=== PATIENT | male | born 1945 | race Caucasian/White ===

== ENCOUNTER → 2018-09-16 06:49 | Outpatient (CLI) | payer OTHER, SELFPAY ==
--- NOTE | 2018-09-16 | DI.ECHO.S_ITS ---
[place] [facility]---------+ [facility] +---------+ : : [address] : [address] : : : : [id number] : : : : Phone: [phone]+ Echocardiogram Report + + :Name: MINAL PENA Study Date: 09/16/2018 Height: 71 in : :[facility] Exam Location: IS Weight: 189 lb : : Gender: Male BSA: 2.1 m2 : :: 1945 Age: 72 yrs BP: 145/65 mmHg: :Reason For Study: DYSPNEA ON EXERTION : : Performed By: Oracio Perez : :Referring: EZEQUIEL HUMPHREYS E : + + Interpretation Summary The left ventricle is normal in size, wall thickness, and systolic function without any focal wall motion abnormalities with the ejection fraction visually estimated to be 60-65%. Diastolic parameters suggest a relaxation abnormality of the left ventricle, consistent with probable normal filling pressures. The right ventricle is normal in size and function. The right ventricular systolic pressure is estimated to be at least 28 mmHg based on an estimated right atrial pressure of 8 mm Hg. There is moderate biatrial enlargement. There is no significant valvular heart disease. The ascending aorta is at the upper limits of normal in size. The patient was in normal sinus rhythm with frequent PVCs during the exam. Procedure: A two-dimensional transthoracic echocardiogram with color flow and Doppler was performed. The study quality was technically good. There is no prior echocardiogram noted for this patient. The patient was in normal sinus rhythm during the exam. The patient had frequent PVCs during the exam. Left Ventricle: The left ventricle is normal in size, wall thickness, and systolic function without any focal wall motion abnormalities. The ejection fraction is estimated to be 60-65%. Diastolic parameters suggest a relaxation abnormality of the left ventricle, consistent with probable normal filling pressures. Right Ventricle: The right ventricle is normal in size and function. Atria: There is moderate biatrial enlargement. The interatrial septum is intact with no evidence for an atrial septal defect. Mitral Valve: The mitral valve is normal in structure and function. There is no mitral regurgitation noted. Aortic Valve: The aortic valve is trileaflet. The aortic valve is slightly calcified. The aortic valve opens well. No aortic regurgitation is present. Tricuspid Valve: The tricuspid valve is normal in structure and function. There is trace tricuspid regurgitation. The right ventricular systolic pressure is estimated to be at least 28 mmHg based on an estimated right atrial pressure of 8 mm Hg. Pulmonic Valve: The pulmonic valve is normal in structure and function. There is trace pulmonic regurgitation. There is no significant valvular heart disease. Great Vessels: The aortic root is normal size. The ascending aorta is at the upper limits of normal in size. The pulmonary artery is normal size. The IVC is dilated (diameter is greater than 2.1 cm) yet it collapses greater than 50% with a sniff. This suggests a right atrial pressure of 8 mm Hg. Pericardium/ Pleura There is no pericardial effusion. There is no pleural effusion. MMode/2D Measurements & Calculations LVIDd: 4.5 cm LVOT diam: 2.3 cm LVIDs: 3.0 cm Ao root diam: 3.6 cm FS: 33.9 % asc Aorta Diam: 3.4 cm EPSS: 0.40 cm Ao Arch Diam (Prox Trans): 2.9 cm IVSd: 0.95 cm LVPWd: 1.1 cm LV garza. diameter/BSA (cm/m^2): 2.2 LV sys. diameter/BSA (cm/m^2): 1.5 LA dimension: 3.6 cm RA long axis: 6.3 cm LA A2 area: 29.0 cm2 RA area: 26.3 cm2 LA A4 area: 25.7 cm2 RA vol: 92.7 ml LA length (vol): 6.4 cm RA : 45.0 ml/m2 LA vol: 98.5 ml IVC diam: 2.4 cm LA vol index: 47.8 ml/m2 Doppler Measurements & Calculations Ao V2 max: 141.4 cm/sec LVOT Max Petros: 114.2 cm/sec Ao V2 mean: 93.3 cm/sec LV V1 max P.2 mmHg Ao max P.0 mmHg LV V1 VTI: 33.6 cm Ao mean P.9 mmHg ROWDY(I,D): 3.9 cm2 Ao V2 VTI: 36.2 cm ROWDY(V,D): 3.4 cm2 sev ratio: 0.93 ROWDY indexed to BSA (cm^2/m^2): 1.9 MV E max petros: 83.9 cm/sec TR max petros: 221.9 cm/sec MV A max petros: 70.5 cm/sec TR max P.7 mmHg MV E/A: 1.2 PA V2 max: 74.9 cm/sec Med Peak E' Petros: 7.6 cm/sec PA V2 mean: 51.4 cm/sec E/E' med: 11.1 PA mean P.2 mmHg Lat Peak E' Petros: 10.0 cm/sec PA pr(Accel): 29.1 mmHg E/E' lat: 8.4 E/e' average: 9.7 MV dec time: 0.14 sec SV(LVOT): 142.3 ml Reading Physician:SERGIO
== END ==
PROVIDERS: PCP Family Medicine; Visit Provider Family Medicine
DX: R06.00 Dyspnea, unspecified (principal); I51.7 Cardiomegaly
CPT/HCPCS: 93306

== ENCOUNTER → 2018-10-27 12:26 | Outpatient (CLI) | payer OTHER, SELFPAY ==
--- NOTE | 2018-10-27 | DI.RAD.S_ITS ---
PROCEDURE: XR CHEST 2V INDICATIONS: DYSPNEA ON EXERTION TECHNIQUE: 2 views of the chest were acquired. COMPARISON: None. FINDINGS: Surgical changes and devices: None. Lungs and pleura: Lungs are clear. No pleural effusions or pneumothorax. Mediastinum: Mediastinal contours are normal. Heart size is normal. Bones and chest wall: No suspicious bony abnormalities. Soft tissues appear unremarkable. IMPRESSION: Normal for age, source of current shortness of breath on exertion symptoms is not seen. Dictated by: Logan Martinez M.D. on 10/27/2018 at 13:32 Approved by: Logan Martinez M.D. on 10/27/2018 at 13:36
== END ==
PROVIDERS: PCP Family Medicine; Visit Provider Family Medicine
DX: R06.09 Other forms of dyspnea (principal)
CPT/HCPCS: 71046

== ENCOUNTER → 2018-12-03 07:45 | Outpatient (CLI) | payer OTHER, SELFPAY ==
--- NOTE | 2018-12-03 08:47 | PM.TREADMILL ---
Cardiac Stress Test Report Referral & Results Date Patient Seen: 12/03/18 Time Patient Seen: 08:30 Requesting provider: [place] Indication: Dyspnea Rest ECG: Occasional PVCs Procedure Note: Today following both written and verbal informed consent the patient was exercised according to a standard [place] protocol until the patient went about 4 minutes. PCVs increased steadily with exercise and began to occur in couplets. The exam was converted to a walking Lexiscan in which he walked on the treadmill at 2 miles per hour with no elevation and was then injected with the [place] scan material. The Cardiolite was then immediately administered. The patient spent an additional 2-3 minutes on the treadmill before being returned to the [facility] in the supine position. Rhythm converted to trigeminy with the addition of Lexiscan material. No ST deviations noted. Impression: Completed [place] protocol. Will await perfusion imaging. Please note: Actual ECG tracings can be found in the PACS system.
--- NOTE | 2018-12-03 08:51 | P.PCN_ITS ---
Cardiac Stress Test Report Referral & Results Date Patient Seen: 12/03/18 Time Patient Seen: 08:30 Requesting provider: [place] Indication: Dyspnea Rest ECG: Occasional PVCs Procedure Note: Today following both written and verbal informed consent the patient was exercised according to a standard [place] protocol until the patient went about 4 minutes. PCVs increased steadily with exercise and began to occur in couplets. The exam was converted to a walking Lexiscan in which he walked on the treadmill at 2 miles per hour with no elevation and was then injected with the [place] scan material. The Cardiolite was then immediately administered. The patient spent an additional 2-3 minutes on the treadmill before being returned to the [facility] in the supine position. Rhythm converted to trigeminy with the addition of Lexiscan material. No ST deviations noted. Impression: Completed [place] protocol. Will await perfusion imaging. Please note: Actual ECG tracings can be found in the PACS system.
--- NOTE | 2018-12-06 20:16 | DI.NM.S_ITS ---
DATE OF SERVICE: 12/03/2018 PROCEDURE: Pharmacological perfusion study. INDICATIONS: Shortness of breath, PVCs. RADIOPHARMACEUTICAL: 22.1 mCi technetium-99m Myoview IV was injected at stress and 22.3 mCi technetium-99m Myoview IV was injected at rest. CARDIAC STRESS: Patient initially attempted exercise stress test. However, developed frequent PVCs; hence, converted to pharmacological perfusion study. Patient received IV Lexiscan as per standard protocol under the supervision of attending staff. He remained hemodynamically stable. Baseline rhythm was sinus with intermittent PVCs including ventricular trigemini. No sustained or nonsustained ventricular tachycardia seen. Blood pressure remains stable. According to the report, patient didn't have any significant symptoms. RAW DATA: There was increased subdiaphragmatic activity. GATED STUDY: Resting stress LV ejection fraction 69%. Stress LV ejection fraction 72%. No obvious wall motion abnormalities. No transient ischemic dilatation. TID ratio is 0.83, which is within normal limits. Resting LV end- diastolic volume is 128 mL. Lung/heart ratio is 0.25, which is within normal limits. MYOCARDIAL PERFUSION SCAN: Stress supine and resting supine images revealed minimally decreased perfusion of apex which got resolved during prone images suggestive of tissue attenuation artifact. No convincing ischemic infarction pattern seen. CONCLUSION: No obvious ischemia infarction. I will call this study a normal myocardial perfusion study. Patient has baseline intermittent premature ventricular contractions (PVCs) including ventricular trigemini. According to the report, during exercise, it has gotten worse. No obvious ventricular tachycardia seen. Left ventricular (LV) systolic function is preserved. Consider EP evaluation for frequent PVCs. Telly Goetz - ANUSHKA/ryan/ doc#: [id number]/job#: [id number] dd: 12/06/2018 17:54:00 dt: 12/06/2018 20:07:00 DICTATING MD/COPIES TO: Maureen Topete MD COPIES MNE: FLORY
== END ==
PROVIDERS: PCP Family Medicine; Visit Provider Family Medicine
DX: R06.02 Shortness of breath (principal); R06.00 Dyspnea, unspecified; I49.3 Ventricular premature depolarization
CPT/HCPCS: 78452; 93016; 93017; 93018; A9502; J2785

== ENCOUNTER → 2022-05-19 09:49 | Outpatient (CLI) | payer OTHER, SELFPAY ==
[2022-05-19 12:18] LABS: COVID19 -Nasal RAPID Negative (Negative)
== END ==
PROVIDERS: PCP Family Medicine; Visit Provider Surgery
DX: Z01.812 Encounter for preprocedural laboratory examination (principal); Z20.822 Contact with and (suspected) exposure to COVID-19
CPT/HCPCS: 87635; C9803

== ENCOUNTER 2022-07-08 07:06 | Day surgery (SDC) | payer OTHER, SELFPAY ==
[2022-07-08] MEDS: LACTATED RINGERS 1,000 ML 200 ML IV (07:22)
[2022-07-08 07:34] VITALS: BP 130/73; PULSE 68; RESP 16; TEMP 36.3; O2SAT 98; BMI 26.4
--- NOTE | 2022-07-08 08:05 | P.HP_ITS ---
History of Present Illness History of Present Illness Date Patient Seen: 07/08/22 Time Patient Seen: 08:05 Chief complaint: SDC Narrative: The patient presents for colorectal screening. Colonoscopy 13 years ago normal.. No personal or family history of colon cancer. On further history denies any recent gastrointestinal symptoms. No nausea, vomiting, abdominal pain, loss of appetite, unexplained weight loss, change in bowel habits, or blood per rectum. Patient History Medical History Shortness of breath Family & Social History Family History Father Hypertension Social History: household members spouse Tobacco & Substance use: Smoking Status Never smoker alcohol intake current alcohol intake frequency 0-2 drinks per day Substance Use Type does not use Meds Home Medications and Allergies Home Medications Medication Instructions Recorded Confirmed Type ibuprofen 200 mg capsule 200 mg PO QID PRN Pain (Scale 10/27/18 07/08/22 History Score 1-3) metoprolol succinate 25 mg 25 mg PO DAILY 07/08/22 07/08/22 History tablet,extended release 24 hr rosuvastatin 5 mg tablet 5 mg PO DAILY 07/08/22 07/08/22 History Allergies Allergy/AdvReac Type Severity Reaction Status Date / Time No Known Drug Allergies Allergy Verified 07/08/22 07:30 Exam Vital Signs (past 8 hours): - 07/08/22 07:34 Temperature 97.4 F L Pulse Rate 68 Respiratory Rate 16 Blood Pressure 130/73 Pulse Oximetry 98 Oxygen Delivery Method Room Air Oxygen Delivery Method Room Air Narrative Exam Narrative: General adult man alert oriented no acute distress Abdomen soft nontender nondistended Assessment & Plan Assessment & Plan narrative: The patient requires colorectal screening and colonoscopy is recommended. Technical details were discussed. Risks, benefits, alternatives explained. Risks including but not limited to myocardial infarction, aspiration, bleeding, pain, missed lesion, incomplete examination, need for further radiographic studies, colonic perforation, and need for major abdominal surgery were discussed. All questions were answered to their satisfaction, and they are in agreement with this plan. Time Spent With Patient Critical Care time: I spent a total of [] minutes of critical care time on this patient's care toda y; this time is exclusive of procedural time.
--- NOTE | 2022-07-08 08:06 | PM.OP.COLON ---
Operative Date/Time/Diagnoses Date of procedure: 07/08/22 Time of procedure: 08:06 Pre-op diagnosis: Colorectal screening Post-op diagnosis: same Procedure & Clinicians Study performed: Colonoscopy Same procedure as scheduled: Yes Indications: Colorectal screening Surgeon: Srinivasa Pineda Procedure Notes Procedure in detail: The history and physical was performed/updated and the patient is ASA class is 2. The procedure was discussed in detail with the patient. Potential risks complications including infection, bleeding, missed diagnosis, perforation, need for surgery, and were explained. Their questions were answered and informed consent was obtained. Patient was brought to the procedure room and placed standard monitoring equipment. The patient's vital signs were monitored continuously throughout the entire procedure. Prior to starting time-out was performed. The patient was placed in the left lateral recumbent position. Procedural sedation was administered by anesthesia. Examination began with a thorough inspection of the perianal area there was no evidence of fissures, fistulae, external hemorrhoids or cutaneous malignancy. The colonoscopy scope was then placed into the anal canal and was advanced to the cecum, which was identified by the ileocecal valve, the appendiceal orifice and the confluence of the taenia. The scope was then slowly withdrawn examining colon thoroughly in all directions, irrigating it of any residual stool. FINDINGS 1. No masses or polyps 2. Mild diverticulosis 3. Internal hemorrhoids The patient tolerated the procedure well. They will be discharged once criteria are met. The prep was of good/excellent quality. The withdrawl time was 6 minutes. Complications: none Impression: Normal colonoscopy Post-procedure Recommendations: Colonoscopy in 10 years and High fiber diet Disposition: same day surgery
[2022-07-08 08:34] VITALS: BP 97/61; PULSE 75; RESP 14; TEMP 36.2; O2SAT 95
[2022-07-08 08:40] VITALS: BP 101/61; PULSE 69; RESP 13; O2SAT 95
[2022-07-08 08:45] VITALS: BP 106/76; PULSE 84; RESP 15; TEMP 36.2; O2SAT 96
[2022-07-08 08:50] VITALS: BP 102/91; PULSE 76; RESP 12; TEMP 36.2; O2SAT 97
--- NOTE | 2022-07-08 08:58 | SUR.PHASEII ---
DC home with . WC to car. denies pain, tolerates PO, no NV
== END 2022-07-08 09:02 | disposition home or self-care (01) ==
PROVIDERS: PCP Family Medicine; Referring Provider Surgery; Visit Provider Surgery
PROC: 0DJD8ZZ Inspection of Lower Intestinal Tract, Via Natural or Artificial Opening Endoscopic (ICD-10-PCS; CPT 45378; principal; 2022-07-08 08:15)
DX: Z12.11 Encounter for screening for malignant neoplasm of colon (principal); K57.30 Diverticulosis of large intestine without perforation or abscess without bleeding; K64.8 Other hemorrhoids
CPT/HCPCS: 45378; J2704